=== PATIENT | female | born 1960 | race Caucasian/White ===

== ENCOUNTER 2024-08-21 06:17 | Day surgery (SDC) | payer BC, SELFPAY ==
[2024-07-25 11:31] LABS: Hematocrit 37.7 % (37.0-47.0); Hemoglobin 12.4 g/dL (12.0-16.0); Mean Corp Hgb Conc. 32.9 g/dL (33.0-37.0); Mean Corpuscular Hgb 30.1 pg (27.0-31.0); Mean Corpuscular Volume 91.5 fL (81.0-99.0); Mean Platelet Volume 11.1 fL (7.4-10.4); Platelet Count 231 10^3/uL (130-400); Red Blood Cell Count 4.12 10^6/uL (4.20-5.40); White Blood Cell Count 7.3 10^3/uL (4.8-10.8)
[2024-07-25 12:11] LABS: ALT (SGPT) 16 U/L (0-35); AST (SGOT) 21 U/L (14-36); Albumin 4.9 g/dl (3.5-5.0); Alkaline Phosphatase 80 U/L (38-126); Blood Urea Nitrogen 18 mg/dl (7-17); Calcium 9.8 mg/dl (8.4-10.2); Carbon Dioxide 26 mmol/L (22-30); Chloride 104 mmol/L (98-107); Glucose 99 mg/dl (70-99); Potassium 4.7 mmol/L (3.5-5.1); Sodium 142 mmol/L (135-145); Total Protein 7.2 g/dl (6.3-8.2); eGFR > 60.00
[2024-07-25 13:06] LABS: Glycohemoglobin (HgbA1c) 5.5 % (4.0-5.6)
[2024-07-25 14:02] VITALS: BMI 26.0
[2024-07-25 14:50] VITALS: BMI 26.0
--- NOTE | 2024-08-08 08:56 | VNURNOTE ---
chart reviewed. per Ge Mackenzie note, no needs for VN post-op.
[2024-08-21] VITALS (17 sets, daily range): BP systolic 111–166; BP diastolic 56–90; PULSE 72–74; O2SAT 99; BMI 26.0
[2024-08-21] MEDS: NORMOSOL-R/PLASMALYTE-A 1000 IV ×2 (09:27→15:24)
[2024-08-21] MEDS: CELEBREX 200 MG PO (09:29)
[2024-08-21] MEDS: TYLENOL 650 MG PO ×2 (09:29→20:35)
[2024-08-21] MEDS: SUBLIMAZE 25 MCG IV ×2 (13:36→13:50)
--- NOTE | 2024-08-21 13:41 | W.PN.UPDATE ---
Update Note
Progress Note Update
L TKA Dr. Nelson 08/21/24
DVT ppx-ASA
-OP PT
PVCs-palpitations
-tele-continue BB uninterrupted
Hx p/o orthostasis-+ Midodrine given need for beta angi
--- NOTE | 2024-08-21 13:48 | W.DS.TRANS ---
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
-
Discharge Instructions:
Sleep Apnea Risk Low
Discharge Diagnosis/Procedures L TKA Dr. Nelson 08/21/24
Diet As tolerated
Activity With Walker
Additional Activity Adequate hydration, minimize Oxy and wear TEDs
stockings to prevent low blood pressure/
dizziness
Driving Restrictions No driving
Bathing Restrictions OK to Shower
Other Services PT
Instructions:
Stand-Alone Forms: Total Hip/Knee Replacement D/C
Changes to Home Medications: Yes
Discharge Medications:
DC Medications w/original date entered in [facility]
ascorbic acid (vitamin C) 1,000 mg tablet (Vitamin C) 1 g PO DAILY 07/23/24
carboxymethylcellulose sodium 1 % eye liquid gel drops 1 drp ophthalmic (eye) DAILY 07/23/24
cholecalciferol (vitamin D3) 25 mcg (1,000 unit) tablet (Vitamin D3) 25 mcg PO DAILY 07/23/24
levothyroxine 88 mcg tablet 88 mcg PO DAILY 07/23/24
metoprolol succinate 25 mg tablet,extended release 24 hr 25 mg PO DAILY 07/23/24
multivitamin 1 tab PO DAILY 07/23/24
famotidine 20 mg tablet 20 mg PO HS GI prophylaxis #30 tabs 07/25/24
gabapentin 300 mg capsule 300 mg PO HS sleep/pain #10 caps 07/25/24
meloxicam 15 mg tablet 15 mg PO DAILY anti-inflammatory #14 tabs 07/25/24
mupirocin 2 % topical ointment 1 applic topical BID infection prevention #1 tube 07/25/24
ondansetron 4 mg disintegrating tablet 4 mg PO Q6H PRN n/v #20 tabs 07/25/24
oxycodone 5 mg tablet 5 mg PO Q6H PRN 1 tab moderate pain, 2 tabs severe pain #30 tabs 07/25/24
acetaminophen 325 mg tablet (Tylenol) 650 mg (2 x 325 mg) PO QID #1 tab 08/21/24
aspirin 325 mg tablet 325 mg PO DAILY blood clot prevention #1 tab 08/21/24
docusate sodium 100 mg capsule (Colace) 100 mg PO BID stool softner #1 cap 08/21/24
irbesartan 150 mg tablet 150 mg PO DAILY #0 tabs 08/21/24
magnesium hydroxide 400 mg/5 mL oral suspension (Milk of Magnesia) 30 ml PO HS PRN constipation #1 mL 08/21/24
sennosides 8.6 mg tablet (Senokot) 17.2 mg (2 x 8.6 mg) PO BID laxative #2 tabs 08/21/24
Home Medication Changes
famotidine 20 mg tablet 20 mg PO HS GI prophylaxis #30 tabs 07/25/24
gabapentin 300 mg capsule 300 mg PO HS sleep/pain #10 caps 07/25/24
meloxicam 15 mg tablet 15 mg PO DAILY anti-inflammatory #14 tabs 07/25/24
mupirocin 2 % topical ointment 1 applic topical BID infection prevention #1 tube 07/25/24
ondansetron 4 mg disintegrating tablet 4 mg PO Q6H PRN n/v #20 tabs 07/25/24
oxycodone 5 mg tablet 5 mg PO Q6H PRN 1 tab moderate pain, 2 tabs severe pain #30 tabs 07/25/24
acetaminophen 325 mg tablet (Tylenol) 650 mg (2 x 325 mg) PO QID #1 tab 08/21/24
aspirin 325 mg tablet 325 mg PO DAILY blood clot prevention #1 tab 08/21/24
docusate sodium 100 mg capsule (Colace) 100 mg PO BID stool softner #1 cap 08/21/24
irbesartan 150 mg tablet 150 mg PO DAILY #0 tabs 08/21/24
magnesium hydroxide 400 mg/5 mL oral suspension (Milk of Magnesia) 30 ml PO HS PRN constipation #1 mL 08/21/24
sennosides 8.6 mg tablet (Senokot) 17.2 mg (2 x 8.6 mg) PO BID laxative #2 tabs 08/21/24
Pending Results: No
[2024-08-21] MEDS: ROXICODONE 5 MG PO ×3 (14:10→21:44)
[2024-08-21] MEDS: OFIRMEV 100 IV (14:43)
[2024-08-21] MEDS: ZOFRAN 4 MG IV (14:44)
[2024-08-21] MEDS: DEMEROL 12.5 MG IV ×2 (14:44→14:55)
--- NOTE | 2024-08-21 16:34 | PTCARENOTE ---
Pt arrived in bed from PACU; AAO x 3; Reports 4/10 pain at L knee surgical site; 4x4 gauze dressing C/D/I; Pt denies nausea; VSS; Oriented to room, call saavedra within reach. Will continue to monitor and assess.
[2024-08-21] MEDS: SYNTHROID PO (17:16)
[2024-08-21] MEDS: ANCEF 5 IV (17:16)
[2024-08-21] MEDS: ASPIRIN 325 MG PO (17:18)
[2024-08-21] MEDS: ProAmatine PO (17:19)
--- NOTE | 2024-08-21 17:20 | OR.RPT ---
Operative Report
Operative Report
Orthopaedic Surgery Operative Note
DATE OF OPERATION: 08/21/2024
PREOPERATIVE DIAGNOSES: Osteoarthritis, left knee.
POSTOPERATIVE DIAGNOSES: Osteoarthritis, left knee.
OPERATION PERFORMED: Left total knee arthroplasty.
SURGEON: James Nelson MD
ASSISTANTS: Dio Montalvo PA-C who assisted with patient and limb positioning and retraction
ANESTHESIA: Spinal
COMPLICATIONS: None.
ESTIMATED BLOOD LOSS: 20mL
DRAINS: None
TOURNIQUET TIME: 48 minutes.
IMPLANTS:
- Gisselle Persona CR Femur, size 9
- Gisselle Persona tibia base plate, size E
- Gisselle Persona ultracongruent articular surface, 12 mm
- All-polyethylene patellar component, size 32
INDICATIONS: The patient presented to my office with debilitating left knee pain due to osteoarthritis. We reviewed the natural history of this problem, as well as the risks, benefits, and alternatives of various treatment options. The patient
exhausted all nonoperative treatment options and wished to proceed with knee replacement surgery. The patient understood the risks which included, but were not limited to, bleeding, infection, failure to relieve pain, more pain than preop, damage to
blood vessels and nerves, need for reoperation, mechanical failure of the implants, wound healing problems, stiffness, instability, blood clot, pulmonary embolism, myocardial infarction, pneumonia, arrhythmia, CVA, and . The patient accepted
these risks and wished to proceed. All questions were answered, and informed consent was obtained. She had history of R TKA by another surgeon and was doing well.
PROCEDURE IN DETAIL: The patient was identified in the preoperative holding area. The left knee was identified as the operative site. The patient was taken in the operating room and placed in a supine position on the operating table. Spinal
anesthesia was performed. IV antibiotics and tranexamic acid were administered. A bump was placed under the left hemipelvis. A well-padded tourniquet was placed on the proximal thigh. All bony prominences were well padded. The left lower extremity
was prepped and draped in the usual sterile fashion.
We performed a surgical time-out. An interarticular block was performed with local anesthetic with epinephrine. The limb was exsanguinated with an Esmarch bandage, then the tourniquet was inflated to 250 mmHg. A midline skin incision was made
followed by a medial parapatellar arthrotomy. A subperiosteal peel was performed on the medial tibia. I excised part of the infrapatellar fat pad to improve our visualization as well as tissue over anterior femur. The patella was everted and the
knee was flexed. I excised the remnants of the anterior and posterior cruciate ligaments as well as tibial and femoral osteophytes with rongeurs.
The knee was flexed, and the extramedullary tibial cutting guide was aligned. O[place]ana was aligned at neutral, rotation was centered on the tibial tubercle, and coronal alignment was aligned with the mechanical axis of the tibia and center of the ankle
joint. The cut height was 10mm off the lateral tibia joint surface. The guide was secured into place. The MCL and LCL were protected. The tibia surface was cut. The cut surface was inspected after removal to ensure appropriate height and slope based
on the preoperative plan. The cut was checked with a drop ilya. It was centered nicely at the ankle.
A drill was used to open the femoral canal. The intramedullary distal femoral cutting guide was inserted into the femur. This was set at 5 degrees +0. This was secured into place with three pins. The cut level was checked with an antwan wing. The
distal femur was cut through the cutting guide. The IM guide was reinserted to double check that the level of resection was flush and in appropriate alignment.
Candice�s line and the transepicondylar axis were marked on the femur. The femoral sizing guide was applied to the anterior femur. Pins were inserted, and the 4-in-1 cutting guide was applied and secured into place. The rotation was compared to
[place]�s line, the transepicondylar axis, and the neutral tibia cut and was found to be appropriate. The width was checked and found to be appropriate and lateralized on the femur. The anterior, posterior, and chamfur cuts were made. A lamina
rug sample beveler was used to open the flexion gap, and posterior osteophytes were removed with a curved osteotome. The remnant medial and lateral meniscus were also removed. I prophylactically cauterized the lateral geniculate arteries. A 10mm spacer block
was applied to the flexion gap and was noted to be balanced medially and laterally. The knee was extended, and the block showed symmetric to extension and flexion gaps.
The tibia was exposed and sized. Rotation was set in line with the tibial tubercle and congruent with the femur. The trial was secured into place with two pins. The trial femur was impacted into place, and a trial articular surface was placed. The
knee was taken through range of motion and noted to be stable throughout the arc of motion without gaping or excess tension. In extension, a measured resection of the patella was performed. The patella was sized, and lug holes were drilled. A trial
patella component was applied, and it was noted to track centrally throughout the arc of motion without need for further releases.
The trials were removed. The tibia keel was prepared with the punch and the drill. The bone surfaces were irrigated with sterile saline and dried. The cement was mixed in a vacuum mixer. Cement gun was used to apply cement to the tibial surface and
the undersurface of the tibial implant. Cement was pressurized into the tibial canal and tibia surface. The tibial component was impacted into place. Excess cement was removed. Cement was applied to the femoral surface and the femoral component. The
femoral component was impacted into place, and excess cement removed. A trial articular surface was inserted, and the knee was extended while the cement polymerized. The tourniquet was let down, and meticulous hemostasis was achieved. Dilute
betadine was poured into the wound and allowed to soak for 3 minutes. The knee was irrigated with copious normal saline.
Once the cement was polymerized, the trial articular surface was removed. Any excess cement was removed. The knee was trialed, and the final articular surface was selected and inserted into the tibial locking mechanism. The knee was reduced. A fresh
drape was applied to the surgical field.
The arthrotomy was closed with 0-PDS. Once closed, an interarticular block was performed with local anesthetic with epi. The deep dermal layer was closed with 2-0 PDS, and the subcuticular skin was closed with 3-0 monocryl. A Dermabond Prineo
dressing was applied to the skin in full flexion. Once this was completely dry, a sterile waterproof dressing was applied.
The anesthesia team performed an adductor canal block in the OR. The patient awoke from anesthesia without any difficulties. The sponge and instrument counts were correct x2 at the end of the case.
Hudson Nelson MD
[2024-08-21] MEDS: COLACE 100 MG PO (20:35)
[2024-08-21] MEDS: TORADOL 15 MG IV (20:35)
[2024-08-21] MEDS: BACTROBAN 2% OINTMENT 1 APPLIC NASAL (20:36)
[2024-08-21] MEDS: PEPCID 20 MG PO (21:41)
[2024-08-22] VITALS (7 sets, daily range): BP systolic 106–139; BP diastolic 53–66; PULSE 64–75; O2SAT 100
[2024-08-22] MEDS: TYLENOL 650 MG PO ×5 (00:07→17:29)
[2024-08-22] MEDS: ANCEF 5 IV (01:27)
[2024-08-22] MEDS: ROXICODONE 5 MG PO ×4 (01:47→17:29)
[2024-08-22] MEDS: SYNTHROID 88 MCG PO (05:36)
--- NOTE | 2024-08-22 08:50 | CM ---
Cm reviewed medical records. CM met with patient paid caregiver Sanjay in room. Patient lives alone, but has a paid caregiver to stay with her 24 hours. Patient has had a history of VN, but is currently not on service. Patient denies history of SNF.
Patient stated that she has all the recommended DME equipment. Patient stated that she has had a previous knee replacement. Patient is active with her PCP. Patient uses [facility] for medication services. Patient stated that she has a two level
home, but stays on the first floor due to knee pain.
Patient confirmed that she has an appointment with [facility] on 08/25.
PLAN: Home with outpatient PT.
--- NOTE | 2024-08-22 09:04 | CM ---
Addendum entered by Tabitha Torres RN 08/22/24 14:23:
Patient has question regarding her staying more than 23 hours and if the insurance would cover it. CM advised that any changed related to her billing status would be reviewed by UR and bill appropriately.
Original Note:
Cm reviewed medical records. Patient live independently with . Patient does not have a history of VN< SNF. Patient has all DME required. Patient is active with her PCP. Patient will use [facility] for medication services.
Plan for outpatient physical therapy at [facility] in [place].
PLAN: home with outpatient PT.
[2024-08-22] MEDS: ASPIRIN 325 MG PO (09:51)
[2024-08-22] MEDS: BACTROBAN 2% OINTMENT 1 APPLIC NASAL (09:51)
[2024-08-22] MEDS: ProAmatine 5 MG PO ×2 (09:51→13:22)
[2024-08-22] MEDS: TOPROL XL 25 MG PO (09:52)
[2024-08-22] MEDS: MOBIC 15 MG PO (09:52)
[2024-08-22] MEDS: COLACE 100 MG PO (09:53)
[2024-08-22] MEDS: TORADOL 15 MG IV (09:54)
--- NOTE | 2024-08-22 12:01 | W.PN.ORTHO ---
Today's Communication / Plan
-
d/c when stable
Assessment
.
Distal Motor Intact: Yes
Dressing:
Clean, dry and intact.
Assessment:
PVCs-palpitations
-stable on tele-continue BB uninterrupted
Hx p/o orthostasis-+ Midodrine given need for beta angi
--POD #1-patient nauseous, dizzy and in pain with PT--very pale-likely vasovagal-IVF bolus-Midodrine due at 1300--check orthostatic vitals prior to d/c
Plan
.
Surgery / Date: Alena Nelson 08/21/24
DVT Prophylaxis: Aspirin
Activity:
Out of bed.
PT/OT
Discharge Plan: Home w/ Outpatient PT
Subjective
.
.:
Patient resting comfortably.
Vital Signs and Labs
.
Vital Signs and Labs:
Lab Results
07/25/24 09:59
07/25/24 09:59
Temp Pulse Resp BP Pulse Ox
97.7 F 72 17 138/66 100
08/22/24 11:10 08/22/24 11:10 08/22/24 11:10 08/22/24 11:10 08/22/24 11:10
Non-invasive Hgb result: 9.4
Physical Exam
-
HEENT: poor pallor, cyanosis, or jaundice. Throat clear.
NECK: Supple. No JVD.
RESPIRATORY: Lungs clear to auscultation.
CVS: S1, S2 normal. RRR.� No murmur, rub or gallop.
ABDOMEN: Soft, non-tender. No distension. BS+/normal.
EXTREMITIES: strength equal, no calf pain with palpation
SWATCH CLERK: AOx3. No focal deficits. svp research & e[employer] operations grossly intact
[2024-08-22] MEDS: ZOFRAN 4 MG IV (12:22)
[2024-08-22] MEDS: D5/0.45%NACL 500 IV (13:23)
[2024-08-22] MEDS: MAALOX 30 ML PO (13:30)
== END 2024-08-22 18:07 | disposition home or self-care (01) ==
LOC: SDS 06:17
PROVIDERS: ATTENDING PHYSICIAN Orthopaedic Surgery; FAMILY PHYSICIAN Internal Medicine; REFERRING PHYSICIAN Internal Medicine Cardiovascular Disease
DX: M17.12 Unilateral primary osteoarthritis, left knee (principal)
CPT/HCPCS: 27447; 36415; 73560; 80053; 83036; 85027; 87070; 97110; 97116; 97162; 97166; 97535; C1713; C1776